=== PATIENT | female | born 1970 | race Caucasian/White ===

== ENCOUNTER → 2020-03-17 | Outpatient (CLI) | payer OTHER ==
--- NOTE | 2020-03-23 08:36 | RAD ---
DATE: 03/17/2020 3:15 PM EXAM: MAMMO [place] SCREENING BILATERAL HISTORY: Screening COMPARISON: None currently available. Bilateral CC and MLO views of the breasts were performed. Bilateral breast tomosynthesis was performed in CC and MLO projections. This study was interpreted with the benefit of Computerized Aided Detection (CAD). FINDINGS: Breast Density: FATTY The Breast Parenchyma is primarily fatty replaced. Breast parenchyma level density A. No suspicious masses, microcalcifications or architectural distortion is present to suggest malignancy in either breast. The visualized axillae are unremarkable. IMPRESSION: No mammographic evidence of malignancy. BI-RADS CATEGORY: 1 NEGATIVE RECOMMENDED FOLLOW-UP: 12M 12 MONTH FOLLOW-UP Annual screening mammography is recommended, unless clinically indicated sooner based on symptoms or change in physical exam. PQRS compliance statement: Patient information was entered into a reminder system with a target due date for the next mammogram. Mammography is a sensitive method for finding small breast cancers, but it does not detect them all and is not a substitute for careful clinical examination. A negative mammogram does not negate a clinically suspicious finding and should not result in delay in biopsying a clinically suspicious abnormality. "Our facility is accredited by the [employer] Mammography Program."
== END ==
LOC: MAMMO 15:03
PROVIDERS: ATTEND Specialist
DX: Z12.31 Encounter for screening mammogram for malignant neoplasm of breast (principal)
CPT/HCPCS: 77063; 77067

== ENCOUNTER 2020-04-16 17:38 | Emergency (ER) | payer OTHER ==
[~2020-04-16] VITALS: Ht 170.2 cm; Wt 121.9 kg
--- NOTE | 2020-04-16 18:25 | PHYS DOC ---
Past History Past Medical History: Anxiety, Arthritis, GERD, Hypertension General Adult EDM: Chief Complaint: SHOULDER INJURY HPI: HPI: "..My chest ,Lt shoulder and neck...here on the left been hurting really bad.... I had an EKG at [facility]... she said it okay.. but my heart is broken... My mon on Saturday... .. I ve been going through her stuff today..." Patient is a 50 year old female who presents with above hx and complaints of lt. neck, chest and left shoulder pain. Patient recently suffered the of her mother on Saturday. And having severe grief reaction. Patient does have a history of elevated cholesterol, hypertension, arthritis and cervical neuropathy. Patient states pain in her chest or upper neck and left shoulder has been somewhat constant the last couple days. Pain does have slight components of neuropathy from cervical plexus. Was seen by Dr. Doll. Reportedly EKG done in the office was normal. Patient has not had previous RI or history of angina. Patient denies any trauma. Patient denies any recent travel outside the [facility]. Denies any specific ill contacts. Review of Systems: Review of Systems: Constitutional: Denies fever or chills Eyes: Denies change in visual acuity HENT: Complains of left neck and trapezius pain Respiratory: Denies cough or shortness of breath Cardiovascular: Complains of upper chest pain GI: Denies abdominal pain, nausea, vomiting, bloody stools or diarrhea : Denies dysuria Musculoskeletal: Complains of left shoulder pain Integument: Denies rash Neurologic: Denies headache, focal weakness or sensory changes Endocrine: Denies polyuria or polydipsia Lymphatic: Denies swollen glands Psychiatric: Denies depression or anxiety Family History: Family History: Mother just of heart failure Current Medications: Current Meds: See nursing for home meds Allergies: Allergies: Allergic amoxicillin carbonic acid and oxaprozin Physical Exam: PE: Constitutional: in acute distress, non-toxic appearance. Crying HENT: Normocephalic, atraumatic, bilateral external ears normal, oropharynx moist, no oral exudates, nose normal. [] Eyes: PERRLA, EOMI, conjunctiva injected, no discharge. [] Neck: Limited range of motion, left trapezius spasm tenderness, trachea midline, no stridor. [] Cardiovascular:Heart rate regular rhythm, no murmur, PMI to the left Lungs & Thorax: Bilateral breath sounds are apex on auscultation [] Abdomen: Bowel sounds normal, soft, no tenderness, no masses, no pulsatile masses. Obese Skin: Warm, dry, no erythema, no rash. [] Back: No tenderness, no CVA tenderness. [] Extremities: Left deltoid tenderness, no cyanosis, no clubbing, ROM intact, no edema. [] Neurologic: Alert and oriented X 3, moves extremities on request, does have distal sensory, no focal deficits noted. [] Psychologic: Affect crying, judgement normal, mood depressed, admits to severe grief over the loss of mother EKG: EKG: My interpretation of EKG shows a sinus rhythm at 77 bpm. Does have mild leftward axis. But no findings acute STEMI of contralateral changes. [] Radiology/Procedures: Radiology/Procedures: [address] [place] [id number] IMAGING REPORT Signed PATIENT: JESUS ALBERTO LOWE ACCOUNT: [id number] : 1970 LOCATION: ER AGE: 50 SEX: F EXAM STATUS: REG ER ORD. PHYSICIAN: CASEY RAMIREZ MD REASON: headache, cervical neuropathy, H/O ANEURYSM PROCEDURE: CT HEAD AND CERVICAL SPINE WO Exam: CT head and cervical spine without contrast INDICATION: Headache, cervical neuropathy TECHNIQUE: Sequential axial images through the head and cervical spine were obtained without the administration of IV contrast. Comparisons: None FINDINGS: Head: Embolization coils at the left carotid terminus. Metallic streak artifact which limits the evaluation. No focal parenchymal lesion or hemorrhage is identified. There is no midline shift or sulcal effacement. No acute vascular territory infarction is identified. Calvo-white distinction is preserved. The ventricular system is within normal limits without compression hydrocephalus. The basal cisterns are well maintained. Near complete opacification of the left maxillary sinus. No acute fractures. Cervical spine: There is reversal of the normal cervical lordosis which may be positional. Vertebral body heights are well-maintained. Fracture to the cervical spine is not identified. Mild multilevel spondylotic change in cervical spine with degenerative disc disease greatest at C5-C6 and C6-C7. Visualized paraspinal soft tissues are unremarkable. IMPRESSION: 1. Chronic changes without acute intracranial abnormality. 2. Negative CT C-spine for acute traumatic injury. Exposure: One or more of the following in the visualized dose reduction techniques were utilized for this examination: 1. Automated exposure control 2. Adjustment of the MA and/or KV according to patient size Use of iterative of reconstructive technique Electronically signed by: Aminata Alvarez MD (04/16/2020 7:41 PM) [id number] DICTATED AND SIGNED BY: AMINATA ALVAREZ MD DATE: 04/16/201940 CC: CASEY RAMIREZ MD; RAPHAEL ORTEGA MD ~ [][place] [address] IMAGING REPORT Signed PATIENT: JESUS ALBERTO LOWE ACCOUNT: [id number] : 1970 LOCATION: ER AGE: 50 SEX: F EXAM STATUS: REG ER ORD. PHYSICIAN: CASEY RAMIREZ MD REASON: cp PROCEDURE: CHEST PA & LATERAL EXAM: PA and Lateral Views of the Chest DATE: 04/16/2020 6:40 PM INDICATION: Chest pain COMPARISON: No Prior FINDINGS: The heart is not enlarged. Mediastinal and hilar contours are normal. No focal parenchymal airspace opacity. No pleural effusion or pneumothorax. Distal right clavicular deformity, question osteonecrosis, incompletely included in the [id number]. IMPRESSION: 1. No radiographic evidence for acute cardiopulmonary process. Electronically signed by: Chaz Bauman MD (04/16/2020 7:45 PM) [facility] DICTATED AND SIGNED BY: CHAZ BAUMAN MD DATE: 04/16/201944 CC: CASEY RAMIREZ MD; RAPHAEL ORTEGA MD ~ Heart Score: HEART Score for Chest Pain: HEART Score for Chest Pain Response (Comments) Value History Slighlty/Non-Suspicious 0 ECG Normal 0 Age >45 - < 65 1 Risk Factors 1 or 2 Risk Factors 1 Troponin < Normal Limit 0 Total 2 Risk Factors: Risk Factors: DM, Current or recent (<one month) smoker, HTN, HLP, family history of CAD, obesity. Risk Scores: Score 0 - 3: 2.5% MACE over next 6 weeks - Discharge Home Score 4 - 6: 20.3% MACE over next 6 weeks - Admit for Clinical Observation Score 7 - 10: 72.7% MACE over next 6 weeks - Early Invasive Strategies Course & Med Decision Making: Course & Med Decision Making Pertinent Labs and Imaging studies reviewed. (See chart for details) Patient is ice packs as needed. Take Tylenol and ibuprofen for pain. Consider physical therapy. Follow-up primary care. For marked pain may take Vicoprofen up to 4 times a day. Suspect pain is primary related to cervical neuropathy. However consider outpatient stress testing. Follow-up primary care. Return if any concerns. Patient take her hypertensive meds as previous directed. Review ED work-up with primary care. Return if any concerns. Pt. currently declines admission, states to many things to do. Exhibit UCAR capacity. Impression: 1. Cervical neuropathy 2. Grief 3. Hypertension [] Dragon Disclaimer: Vane Disclaimer: This electronic medical record was generated, in whole or in part, using a voice recognition dictation system. Departure Departure: Referrals: RAPHAEL ORTEGA MD (PCP) Scripts Hydrocodone/Ibuprofen (HYDROCODONE-IBUPROFEN 7.5-200 ) 1 Each Tablet 1 TAB PO PRN Q6HRS PRN for PAIN, #30 TAB 0 Refills Prov: CASEY RAMIREZ MD 04/16/20 Vane Disclaimer This chart was dictated in whole or in part using Voice Recognition software in a busy, high-work load, and often noisy Emergency Department environment. It may contain unintended and wholly unrecognized errors or omissions. CASEY RAMIREZ MD Apr 16, 2020 18:25
[2020-04-16] MEDS ORDERED: IV RINGERS SOLUTION,LACTATED 1,000 ML IV SCH (18:40)
[2020-04-16] MEDS ORDERED: MORPHINE SULFATE 10 MG/ML SYRINGE. SQ ONE (18:45)
[2020-04-16] MEDS ORDERED: ASPIRIN CHEWABLE 81 MG TABLET. PO ONE (18:45)
[2020-04-16] MEDS ORDERED: methylPREDNISolone ACETATE 40 MG/ML VIAL. IM ONE (18:45)
--- NOTE | 2020-04-16 19:44 | RAD ---
Exam: CT head and cervical spine without contrast INDICATION: Headache, cervical neuropathy TECHNIQUE: Sequential axial images through the head and cervical spine were obtained without the administration of IV contrast. Comparisons: None FINDINGS: Head: Embolization coils at the left carotid terminus. Metallic streak artifact which limits the evaluation. No focal parenchymal lesion or hemorrhage is identified. There is no midline shift or sulcal effacement. No acute vascular territory infarction is identified. Calvo-white distinction is preserved. The ventricular system is within normal limits without compression hydrocephalus. The basal cisterns are well maintained. Near complete opacification of the left maxillary sinus. No acute fractures. Cervical spine: There is reversal of the normal cervical lordosis which may be positional. Vertebral body heights are well-maintained. Fracture to the cervical spine is not identified. Mild multilevel spondylotic change in cervical spine with degenerative disc disease greatest at C5-C6 and C6-C7. Visualized paraspinal soft tissues are unremarkable. IMPRESSION: 1. Chronic changes without acute intracranial abnormality. 2. Negative CT C-spine for acute traumatic injury. Exposure: One or more of the following in the visualized dose reduction techniques were utilized for this examination: 1. Automated exposure control 2. Adjustment of the MA and/or KV according to patient size Use of iterative of reconstructive technique Electronically signed by: Aminata Mayo MD (04/16/2020 7:41 PM) [id number]
--- NOTE | 2020-04-16 19:48 | RAD ---
EXAM: PA and Lateral Views of the Chest DATE: 04/16/2020 6:40 PM INDICATION: Chest pain COMPARISON: No Prior FINDINGS: The heart is not enlarged. Mediastinal and hilar contours are normal. No focal parenchymal airspace opacity. No pleural effusion or pneumothorax. Distal right clavicular deformity, question osteonecrosis, incompletely included in the [id number]. IMPRESSION: 1. No radiographic evidence for acute cardiopulmonary process. Electronically signed by: Chaz Joshi MD (04/16/2020 7:45 PM) ROMEO
[2020-04-16 20:07] LABS: CALCIUM 9.8 mg/dL (8.5-10.1); CREATININE 0.8 mg/dL (0.6-1.0); GFR 75.3
[2020-04-16 20:20] LABS: ALBUMIN 3.8 g/dL (3.4-5.0); DIRECT BILIRUBIN 0.2 mg/dL (0.0-0.2); MAGNESIUM 2.3 mg/dL (1.8-2.4); TOTAL BILIRUBIN 0.2 mg/dL (0.2-1.0); TOTAL PROTEIN 7.9 g/dL (6.4-8.2)
[2020-04-16 20:28] LABS: BASO % 1 % (0-3); EOS # 0.1 x10^3/uL (0.0-0.7); EOS % 1 % (0-3); HEMATOCRIT 41.6 % (36.0-47.0); HEMOGLOBIN 13.6 g/dL (12.0-15.5); LYMPH # 1.7 x10^3/uL (1.0-4.8); LYMPH % 18 % (24-48); MEAN CORPUSCULAR HEMOGLOBIN 28 pg (25-35); MEAN CORPUSCULAR HGB CONC 33 g/dL (31-37); MEAN CORPUSCULAR VOLUME 86 fL (79-100); MONO # 0.7 x10^3/uL (0.0-1.1); MONO % 7 % (0-9); NEUT % 74 % (31-73); PLATELET COUNT 304 x10^3/uL (140-400); RED BLOOD COUNT 4.83 x10^6/uL (3.50-5.40); RED CELL DISTRIBUTION WIDTH 14.7 % (11.5-14.5); WHITE BLOOD COUNT 9.5 x10^3/uL (4.0-11.0)
[2020-04-16 20:46] LABS: BILIRUBIN,URINE NEG (NEG); CLARITY,URINE CLEAR; COLOR,URINE YELLOW; GLUCOSE,URINE NEG (NEG)
[2020-04-16] MEDS ORDERED: HYDR-1179 PO (20:46)
[2020-04-16 20:47] LABS: BACTERIA,URINE FEW /HPF (0-FEW); NITRITE,URINE NEG (NEG); RBC,URINE 0 /HPF (0-2); SQUAMOUS EPITHELIAL CELL,UR OCC /LPF
[2020-04-16 20:55] VITALS: BP 168/81
--- NOTE | 2020-04-16 23:00 | EKG ---
[facility] ED [facility] [address] [place] [id number] Test Date: 2020-04-16 Test Time: 18:53:50 Pat Name: JESUS ALBERTO LOWE Department: Room: Gender: F Compliance Investigator: : 1970 Requested By: CASEY RAMIREZ Order Number: [id number] Reading MD: Measurements Intervals [place] Rate: 77 P: 70 MA: 158 QRS: -11 QRSD: 98 T: 42 QT: 404 QTc: 459 Interpretive Statements SINUS RHYTHM LEFTWARD AXIS OTHERWISE NORMAL ECG RI6.02 No previous ECG available for comparison
== END 2020-04-16 20:56 | disposition home or self-care (01) ==
LOC: ER 17:38
DX: G54.2 Cervical root disorders, not elsewhere classified (principal); F43.21 Adjustment disorder with depressed mood; I10 Essential (primary) hypertension; F41.9 Anxiety disorder, unspecified; M19.90 Unspecified osteoarthritis, unspecified site; K21.9 Gastro-esophageal reflux disease without esophagitis; Z88.1 Allergy status to other antibiotic agents; Z88.8 Allergy status to other drugs, medicaments and biological substances
CPT/HCPCS: 36415; 70450; 71046; 72125; 80048; 80076; 81001; 82550; 83690; 83735; 83880; 84443; 84484; 85025; 85379; 85610; 85730; 93005; 96360; 96372; 99285; J1030; J2270; J7120

== ENCOUNTER 2020-05-03 14:42 | Emergency (ER) | payer OTHER ==
[~2020-05-03] VITALS: Ht 170.2 cm; Wt 121.2 kg
[~2020-05-03 14:42] MED LIST: HYDR-1179 PO
[2020-05-03] MEDS ORDERED: ONDA4TAB12 PO (15:54)
--- NOTE | 2020-05-03 15:54 | PHYS DOC ---
Past History Past Medical History: Anxiety, Arthritis, GERD, Hypertension (EDEN TREVINO APRN) Past Surgical History: No Surgical History (EDEN TREVINO APRN) Alcohol Use: Occasionally (EDEN TREVINO APRN) Adult General Chief Complaint Chief Complaint: UPPER EXTREMITY PAIN [facility] Patient is a 50 year old female who presents with complaints that she is unable to take her prescribed pain medications because she feels nauseated shortly after taking them. Patient reports that she has chronic neuropathy pain that affects her left arm that includes both numbness and pain off and on. Patient states she sees her primary physician Dr. Ortega to receive cortisone injections, her last injection was on April 17. Patient states the main reason she is here today is to see if there is something that she can take so that she does not get nauseated when she takes her pain medications. Patient states that she takes 800 mg ibuprofen for chronic pains, lisinopril 20/12.5 mg tablet daily for hypertension, a 325 mg aspirin daily, and an ulcer pill that she does not know the name of. Patient reports her allergies as Augmentin, oxaprozin. Patient denies any other health concerns today in the emergency department, patient denies any recent fever or chills, denies recent exposure to the COVID-19 virus, patient does not wish to be tested for the COVID-19 virus today. (EDEN TREVINO APRN) Review of Systems Review of Systems Constitutional: Denies fever or chills Eyes: Denies change in visual acuity, redness, or eye pain HENT: Denies nasal congestion or sore throat Respiratory: Denies cough or shortness of breath Cardiovascular: No additional information not addressed in HPI GI: Denies abdominal pain, nausea, vomiting, bloody stools or diarrhea : Denies dysuria or hematuria Musculoskeletal: Denies back pain or joint pain, complains of intermittent numbness and pain to left upper extremity that she attributes to her chronic cervical spine arthritis in which she is being treated for with her primary care physician, patient denies any numbness or pain today. Integument: Denies rash or skin lesions Neurologic: Denies headache, focal weakness or sensory changes Endocrine: Denies polyuria or polydipsia All other systems were reviewed and found to be within normal limits, except as documented in this note. (EDEN TREVINO APRN) Current Medications Current Medications Patient reports taking 800 mg Motrin as needed for pain, lisinopril/hydrochlorothiazide 20 mg / 12.5 mg daily, 325 mg aspirin, ulcer pill that she cannot recall the name of. (EDEN TREVINO APRN) Allergies Allergies Allergies Coded Allergies Type Severity Reaction Last Updated Verified amoxicillin Allergy Intermediate 05/03/20 Yes clavulanic acid Allergy Intermediate 05/03/20 Yes oxaprozin Allergy Intermediate 05/03/20 Yes (EDEN TREVINO APRN) Physical Exam Physical Exam Constitutional: Well developed, well nourished, no acute distress, non-toxic appearance. HENT: Normocephalic, atraumatic, bilateral external ears normal, oropharynx moist, no oral exudates, nose normal. Eyes: PERRLA, EOMI, conjunctiva normal, no discharge. Neck: Normal range of motion, no tenderness, supple, no stridor. Cardiovascular:Heart rate regular rhythm, no murmur Lungs & Thorax: Bilateral breath sounds clear to auscultation Abdomen: Bowel sounds normal, soft, no tenderness, no masses, no pulsatile mass es. Skin: Warm, dry, no erythema, no rash. Back: No tenderness, no CVA tenderness. Extremities: No tenderness, no cyanosis, no clubbing, ROM intact, no edema. Neurologic: Alert and oriented X 3, normal motor function, normal sensory function, no focal deficits noted. Psychologic: Affect normal, judgement normal, mood normal. (EDEN TREVINO APRN) EKG EKG [] (EDEN TREVINO APRN) Radiology/Procedures Radiology/Procedures [] (EDEN TREVINO APRN) Heart Score Risk Factors: Risk Factors: DM, Current or recent (<one month) smoker, HTN, HLP, family history of CAD, obesity. Risk Scores: Risk Factors: DM, Current or recent (<one month) smoker, HTN, HLP, family history of CAD, obesity. (EDEN TREVINO APRN) Course & Med Decision Making Course & Med Decision Making Pertinent Labs and Imaging studies reviewed. (See chart for details) 50-year-old female vital signs stable temperature 98.1 oral, heart rate 88, respiratory rate 16 and nonlabored with room air O2 saturation of 96%, blood pressure 157/85 taken by noninvasive blood pressure. Patient arrived to the emergency department with a main concern that she would like something to treat her nausea feeling that she gets when she takes her pain medications to treat her chronic arthritis pain. Patient states that she does have an appointment with her primary care physician this coming Saturday, May 09. Patient states that she gets cortisone injections to treat her chronic arthritis symptoms. Patient denied any other symptoms in the emergency department today. Patient states that she currently does not have any pain or numbness to her left upper extremity. Patient is nontoxic. Patient's nausea is most likely related to taking her combination narcotic medications. Patient also asked if she could try a sling to wear on her left arm as needed during times of discomfort. Patient will be ordered a sling that she can use as needed, applied by ED nurse prior to patient's discharge. Discussed with patient that we will treat with ODT ondansetron to treat nausea so that she may take her prescribed pain medications. Patient gave verbal understanding of ondansetron use, patient is to tell her physician on this coming Saturday that she is now taking this medication. Patient was given strict return to emergency department precautions, patient had no further questions or concerns, patient discharged home without incident. (EDEN TREVINO APRN) Dragon Disclaimer Dragon Disclaimer This electronic medical record was generated, in whole or in part, using a voice recognition dictation system. (EDEN TREVINO APRN) Departure Departure: Impression: Primary Impression: Nausea Additional Impression: Chronic arthritis Disposition: 01 DC HOME SELF CARE/HOMELESS Condition: GOOD Referrals: RAPHAEL ORTEGA MD (PCP) Patient Instructions: Nausea, Adult Additional Instructions: Take nausea medication as prescribed, return to the emergency department for worsening symptoms, keep your appointment with your primary care doctor for next Saturday, make sure you tell your primary physician that you are taking this new medication for nausea as I am only prescribing you a few and she may consider prescribing you more if this medication works well for you. EMERGENCY DEPARTMENT GENERAL DISCHARGE INSTRUCTIONS Thank you for coming to [facility] (ED) today and trusting us with you care. We trust that you had a positivie experience in our Emergency Department. If you wish to speak to the department management, you may call the director at [phone]. YOUR FOLLOW UP INSTRUCTIONS ARE FOLLOWS: 1. Do you have a private Doctor? If you do not have a private doctor, please ask for a resource list of physicians or clinics that may be able to assist you with follow up care. 2. The Emergency Physician has interpreted your x-rays. The X-Ray specialist will also review them. If there is a change in the findings, you will be notified in 48 hours when at all possible. 3. A lab test or culture has been done, your results will be reviewed and you will be notified if you need a change in treatment. ADDITIONAL INSTRUCTIONS AND INFORMATION: 1. Your care today has been supervised by a physician who is specially trained in emergency care. Many problems require more than one evaluation for a complete diagnosis and treatment. We recommend that you schedule your follow up appointment as recommended to ensure complete treatment of you illness or injury. If you are unable to obtain follow up care and continue to have a problem, or if your condition worsens, we recommend that you return to the ED. 2. We are not able to safely determine your condition over the phone nor are we able to give sound medical advice over the phone. For these safety reasons, if you call for medical advice we will ask you to come to the ED for further evaluation. 3. If you have any questions regarding these discharge instructions please call the ED at [phone]. SAFETY INFORMATION: In the interest of safety, wellness, and injury prevention; we encourage you to wear your sealbelt, if you smoke; quite smoking, and we encourage family to use a protective helmet for bicycling and other sporting events that present an increased risk for head injury. IF YOUR SYMPTOMS WORSEN OR NEW SYMPTOMS DEVELOP, OR YOU HAVE CONCERNS ABOUT YOUR CONDITION; OR IF YOUR CONDITION WORSENS WHILE YOU ARE WAITING FOR YOUR FOLLOW UP APPOINTMENT; EITHER CONTACT YOUR PRIMARY CARE DOCTOR, THE PHYSICIAN WHOSE NAME AND NUMBER YOU WERE GIVEN, OR RETURN TO THE ED IMMEDIATELY. Scripts Ondansetron (ONDANSETRON ODT) 4 Mg Tab.rapdis 1 TAB PO PRN Q6-8HRS for NAUSEA FROM PAIN MEDICATION, #16 TAB 0 Refills Prov: STACIEEDEN Lopez JOELLE 05/03/20 Attending Signature Attending Signature I have reviewed the PA/BRASS RECLAIMER's note and plan of care. I was available for consultation as needed during the patient's visit in the emergency department. I agree with the clinical impression, plan, and disposition. (EDEN JOE DO) Problem Qualifiers EDEN TREVINO APRN May 03, 2020 15:54 EDEN JOE DO May 03, 2020 19:35
[2020-05-03 16:05] VITALS: BP 134/68
== END 2020-05-03 16:05 | disposition home or self-care (01) ==
LOC: ER 14:42
DX: M13.88 Other specified arthritis, other site (principal); R11.0 Nausea; M79.642 Pain in left hand; F41.9 Anxiety disorder, unspecified; K21.9 Gastro-esophageal reflux disease without esophagitis; I10 Essential (primary) hypertension; G89.29 Other chronic pain; Z88.1 Allergy status to other antibiotic agents; Z88.8 Allergy status to other drugs, medicaments and biological substances
CPT/HCPCS: 99284

== ENCOUNTER → 2021-03-24 | Outpatient (CLI) | payer OTHER ==
[~2021-03-24] MED LIST changes: +ONDA4TAB12 PO
--- NOTE | 2021-03-24 11:19 | RAD ---
Bilateral screening mammogram with tomography dated 03/24/2021. INDICATION: 51 years of age asymptomatic female patient presents for screening mammography. Screening TECHNIQUE: Full field craniocaudal and mediolateral oblique images of both breasts were obtained usi ng digital technique with tomosynthesis and also analyzed with computer-aided detection software. . COMPARISON: 03/17/2020 .. BREAST COMPOSITION: Category B: There are scattered fibroglandular densities. FINDINGS: Suspicious mass or clustered microcalcification. No architectural distortion. Parenchymal pattern is stable. IMPRESSION: Stable bilateral mammogram. RECOMMENDATION: Annual screening mammography is recommended, unless clinically indicated sooner based on symptoms or change in physical exam. BIRADS 1: NEGATIVE This study was interpreted with the benefit of Computerized Aided Detection (CAD). Follow-up screening mammogram in one year. Patient information is entered into the reminder system with a target due date for the next screening mammogram. Mammography is the most sensitive method for finding small breast cancers, but it does not detect the m all and is not a substitute for careful clinical examination. A negative mammogram does not negate a clinically suspicious finding and should not result in delay in biopsying a clinically suspicious a bnormality. "Our facility is accredited by the [employer] Mammography Program." Electronically signed by: Hesham Martinez MD (03/24/2021 11:17 AM) [id number]
== END ==
LOC: MAMMO 09:51
PROVIDERS: ATTEND Specialist
DX: Z12.31 Encounter for screening mammogram for malignant neoplasm of breast (principal)
CPT/HCPCS: 77063; 77067

== ENCOUNTER → 2021-04-14 | Outpatient (CLI) | payer OTHER ==
--- NOTE | 2021-04-15 04:13 | RAD ---
XR SHOULDER_RIGHT 2+ VIEWS 04/14/2021 3:28 PM INDICATION: Right shoulder pain, injury COMPARISON: None available. TECHNIQUE: 3 views the right shoulder are provided. FINDINGS/ IMPRESSION: There is no acute fracture or dislocation. Mild acromial clavicular osteoporosis. Bone mineralization is within normal limits. Regional soft tissues are within normal limits. There is no soft tissue gas or osseous erosion. No radiopaque foreign body. Electronically signed by: Jessica Cano MD (04/15/2021 4:10 AM) MARK
== END ==
LOC: RAD 15:11
PROVIDERS: ATTEND Nurse Practitioner Family
DX: S49.91XA Unspecified injury of right shoulder and upper arm, initial encounter (principal); M81.8 Other osteoporosis without current pathological fracture; W19.XXXA Unspecified fall, initial encounter; Y93.89 Activity, other specified; Y92.89 Other specified places as the place of occurrence of the external cause; Y99.8 Other external cause status
CPT/HCPCS: 73030